=== PATIENT | male | born 1940 | race Caucasian/White ===

== ENCOUNTER 2018-09-04 10:29 | Day surgery (SDC) | payer MEDICARE, SELFPAY ==
[2018-09-04 10:47] VITALS: BP 148/86; PULSE 78; RESP 18; TEMP 36.8; O2SAT 98; BMI 25.3
[2018-09-04] MEDS: Tetracaine 0.5% Ophthalmic Bottle 1 DRP (12:20)
[2018-09-04] MEDS: Neomycin/Polymyxin/Dexameth OINT 3.5GM OPTH.TUBE 3.5 APPLIC OPHTHALMIC (13:38)
--- NOTE | 2018-09-04 13:39 | DCINST_ITS ---
[facility] Eyelid Surgery Discharge Instructions: CARE: 1. Apply Ice or Bag of Frozen Veggies to the surgery location 30 minutes of every hour for the first 48 hours while awake. 2. When you are sleeping, please apply the shield with paper tape for the first 3 nights. 3. It is best to attempt to sleep on your side that is opposite the side of surgery. 4. Do not RUB your eyelid. 5. Do not shower for 24 hours after surgery. It is OK to sponge bath but avoid water in or around the face. 6. Clean the incision daily with warm water and clean cloth. Do NOT RUB aggressively. 7. Do not lift anything heavier than 25 pounds for the first 2 weeks after surgery. 8. Resume regular diet and medications MEDICATIONS: 1. Apply prescribed eye ointment to the incision site and eye four times daily for the first two days. 2. If your eye is comfortable after 2 days, you may apply the ointment only to the incision site until your appointment with Dr. Frausto in 1 week. Please CALL IF YOU DEVELOP ANY OF THE FOLLOWING PROBLEMS: 1. Extreme pain that is not relieved with Tylenol or Ibuprofen 2. Vision loss 3. Nausea and vomiting During regular office hours, please call the office at After hours, please call the office which will route to an answering service OR call Dr. Frausto directly at If you have not heard from Dr. Frausto in 30 minutes, please call . You will reach Dr. Michele Frausto. Please notify him you are an EYE patient and need to speak with Dr. Sylvia Frausto.
[2018-09-04 13:40] VITALS: BP 126/85; BP 148/86; PULSE 63; RESP 18; TEMP 36.6; O2SAT 93
[2018-09-04 13:45] VITALS: BP 122/69; BP 148/86; PULSE 58; RESP 16; O2SAT 95
--- NOTE | 2018-09-04 13:46 | OP.PCM_ITS ---
Report of Operation Date of Procedure: 09/04/18 Pre-Operative Diagnosis: Dermatochalasis Bilateral Post-Operative Diagnosis: same Surgery/Procedure Performed:: Bilateral Upper Eyelid Blepharoplasty Description of Surgical Findings:: dermatochalasis upper eyelids OU Type of Anesthesia:: Local MAC Specimen's removed: Bilateral upper eyelid skin Estimated Blood Loss (mL): <5 cc Description of Procedure: The patient was seen in the preoperative bay where bilateral upper eyelid creases and skin to be excised were marked with the patient in the upright position. The patient was then brought to the operating room where a time out was performed prior to the start of the procedure. Anesthesia team induced sedation. Lidocaine with epinephrine was infiltrated into the upper eyelid skin. The upper face was prepped and draped in sterile fashion for surgery. Corneal protectors were placed in the right and left eye after application of tetracaine drops. Attention was paid to the right upper eyelid. A 15 degree blade was used to make the incision along the premarked areas of the upper eyelid. Kevin scissors and forceps were used to remove the upper eyelid skin and orbicularis. Hemostasis was achieved with bipolar cautery. A wet gauze pad was applied to the right upper eyelid and the exact same procedure took place for the left upper ey elid. Subsequently returning to the right upper eyelid, it was ensured adequate hemostasis was achieved. A central interrupted suture was placed to reapproximate the upper eyelid skin with 6-0 nylon. The same suture was then used to close the temporal aspect of the incision in a running fashion. Nasally, a small triangle of tissue was excised medially . The triangle was closed with a single interrupted suture. The remaining nasal aspect of the incision was closed in a running fashion. The exact same procedure was completed on the left upper eyelid. The corneal protectors were removed. Maxitrol ointment was applied to both eyelids and eyes. Patient was taken to the recovery room in a stable condition with instructions to follow up in the clinic in 5-7 days. - Complications none
[2018-09-04 13:50] VITALS: BP 128/79; BP 148/86; PULSE 61; RESP 16; O2SAT 94
[2018-09-04 13:55] VITALS: BP 128/90; BP 148/86; PULSE 83; RESP 18; TEMP 36.2; O2SAT 100
[2018-09-04 14:19] VITALS: BP 148/86
== END 2018-09-04 14:27 | disposition home or self-care (01) ==
LOC: SDC 10:30 → AC 10:32
PROVIDERS: Family Provider Internal Medicine; PCP Internal Medicine; Referring Provider Ophthalmology; Visit Provider Ophthalmology
DX: H02.831 Dermatochalasis of right upper eyelid (principal); H02.834 Dermatochalasis of left upper eyelid; I12.9 Hypertensive chronic kidney disease with stage 1 through stage 4 chronic kidney disease, or unspecified chronic kidney disease; N18.9 Chronic kidney disease, unspecified; E55.9 Vitamin D deficiency, unspecified; E78.00 Pure hypercholesterolemia, unspecified; M19.90 Unspecified osteoarthritis, unspecified site; Z79.899 Other long term (current) drug therapy; Z87.891 Personal history of nicotine dependence; Z86.718 Personal history of other venous thrombosis and embolism
CPT/HCPCS: 15822

== ENCOUNTER → 2023-05-03 | Outpatient (CLI) | payer MEDICARE, SELFPAY | END | disposition home or self-care (01) | PROVIDERS: PCP Internal Medicine; Referring Provider Nurse Practitioner Family; Visit Provider Nurse Practitioner Family | DX: I45.5 Other specified heart block (principal) | CPT/HCPCS: 93225; 93226 ==

== ENCOUNTER 2023-06-14 11:20 | Day surgery (SDC) | payer MEDICARE, SELFPAY ==
[2023-06-02 07:41] LABS: Hematocrit 48.8 % (40-54); Mean Corp Hgb Conc 32.8 g/dL (32-36); Mean Corpuscular Hgb 30.8 pg (27.0-32.0); Mean Platelet Vol. 9.5 fl (6.2-12.0); Platelet Count 248 K/mm3 (150-450); RBC Distribution Width CV 13.9 % (11.6-14.6); RBC Distribution Width SD 47.8 fl (35.1-43.9); Red Blood Count 5.19 M/mm3 (4.6-6.2); White Blood Count 5.3 K/mm3 (4.4-11.0)
[2023-06-02 07:46] LABS: Anion Gap 4 (5-15); BUN 25 mg/dL (7-18); BUN/Creat Ratio 20.5 RATIO (10-20); Calcium,Total 9.5 mg/dL (8.5-10.1); Chloride 108 mmol/L (98-107); Creatinine, Serum 1.22 mg/dL (0.70-1.30); EST Glomerular Filtration Rate 61 mL/min (>60); Est Glom Filt Rate - Afr Amer 73 mL/min (>60); Glucose 123 mg/dL (74-106); Potassium 4.3 mmol/L (3.5-5.1); Sodium Level 142 mmol/L (136-145)
[2023-06-14] VITALS (9 sets, daily range): BP systolic 120–156; BP diastolic 72–99; PULSE 77–98; RESP 14–16; TEMP 36.8–37.2; O2SAT 88–99; BMI 23.9
[2023-06-14] MEDS: Lactated Ringers 1,000 ML 15 ML IV (12:01)
--- NOTE | 2023-06-14 13:13 | HP.PCM_ITS ---
History and Physical Date of Admission: 06/14/23 Visit Reasons: HEMORRHOIDS Chief Complaint: hemorrhiods Is patient in pain?: No Allergies No Known Allergies Allergy (Verified 06/01/23 10:32) Medications lisinopril 5 mg tablet 10 mg PO DAILY 05/22/13 [History Confirmed 06/01/23] Vitamin D3 5,000 mg PO QODAY 09/16/15 [History Confirmed 06/01/23] multivitamin (Multiple Vitamins tablet) 1 ea PO DAILY 04/29/16 [History Confirmed 06/01/23] atorvastatin 20 mg tablet (Lipitor) 20 mg PO DAILY 06/01/23 [History Confirmed 06/01/23] dapagliflozin propanediol 5 mg tablet (Farxiga) 5 mg PO DAILY 06/01/23 [History Confirmed 06/01/23] PFS Surgical History H/O brain surgery History of hernia repair History of left knee replacement History of right hip replacement History of total right knee replacement Social History (Updated 06/01/23 @ 10:31 by Velia Garcia) Smoking Status: Never smoker alcohol intake: current alcohol intake frequency: holidays/special occasions only substance use type: does not use HPI HPI HPI: 82-year-old gentleman is being referred by Dr. Tatiana Ott for surgical consultation regarding bleeding hemorrhoids and a written copy my surgical consult and recommendations will return to her. She is provided information of a colonoscopy performed by Dr. Curly Albright back on May 30, 2022. Internal hemorrhoids were noted. Sessile polyp in hepatic flexure was removed with a cold snare. It was felt by Dr. Curly Albright that the patient's episodic rectal bleeding was secondary to hemorrhoids and/or diverticulosis. He recommended hydrocortisone cream twice a day for 10 days and a high-fiber diet. There was no further GI follow-up offered. No additional colonoscopies were recommended because of the patient's age. The patient states over the past year he has had increased greasy type of disch arge as well as rectal bleeding. He has had to increase leg and wear a pad for absorption. ROS General General: No weight change, appetite, fatigue, colon cancer, breast cancer or weakness HEENT HEENT: No difficulty swallowing, eye injury, eye surgery, swollen glands or hoarseness Endo Endocrine: No thyroid disease, diabetes mellitus, thyroid cancer, Hair loss, heat intolerance or cold intolerance Skin Skin: No rash or changing moles Musc Musculoskeletal: Yes arthritis; No back problems, rheumatoid arthritis, gout or joint pain Cardio Cardiovascular: Yes high blood pressure; No murmur, pacemaker, heart disease, atrial fibrillation, heart attack, heart stent, palpitations, shortness of breat with exertion or chest pain Psych Psychiatric: No depression, anxiety or hearing voices Resp Respiratory: No shortness of breath, No sleep apnea, No cough, No COPD, No asthma, No emphysema and No wheezing Gastro Gastrointestinal: No abdominal pain, No nausea or vomiting, No diarrhea, No constipation, No blood in stool, No acid reflux, Yes hemorrhoids, No ulcers, No gallbladder problem and No black,tarry stools Thierno Hematologic: No blood thinners, No blood disorders, No bleeding, No anemia and Yes blood clots Neuro Neurologic: No system reviewed and no additional complaints, except as documented, No as per HPI, No abnormal gait, No abnormal hearing, No abnormal movements, No abnormal speech, No behavioral changes, No burning sensations, No confusion, No convulsions, No disequilibrium, No dizziness, No localized weakness, No frequent falls, No headache(s), No lack of coordination, No loss of vision, No memory loss, No numbness, No other visual disturbances, No radicular pain, No restless legs, No sensory deficit, No syncope, No tingling, No tremor(s), No weakness and No other Exam Const General: cooperative, healthy appearing, comfortable and no acute distress [facility] Head: normal to inspection Eyes General: appearance normal, both eyes and all related structures Neck Neck: normal visual inspection Chest Chest palpation & inspection: normal inspection of the chest Resp Effort & Inspection: normal respiratory effort Auscultation: clear to auscultation bilaterally Cardio Other: Irregular heart rate GI Palpation: soft and no hepatosplenomegaly Other: Rectal exam demonstrates prolapsing tissue particularly right lateral with superficial ulceration of the mucosa. Internal and external hemorrhoids noted. Significant 3+ prostatic enlargement [facility] [place] [facility] [place] Cervical Spine: normal cervical lordosis Skin General: no rashes or lesions noted Neuro General: patient alert and patient awake Extrem General: no calf tenderness Psych Appearance: grossly normal Assessment and Plan Assessment and Plan (1) Bleeding hemorrhoids: Status: Acute Plan: Patient appears to have prolapsing ulcerated mucosa internal hemorrhoids particularly right lateral. I think this correlates with his rectal bleeding and jellylike discharge. The tissue does appear to be abnormal. It is soft. I definitively recommend an excisional hemorrhoidectomy of this tissue with careful inspection by pathology to exclude potential for malignancy. I have discussed with him the technique benefit risk complication alternatives of the surgical hemorrhoidectomy. They do have a trip planned in late August but I believe that he he will be improved by this procedure. He is aware of potential risk for sphincter injury and incontinence. He has had an opportunity ask questions answered. I believe that his hygiene and daily activity will be improved with the surgical treatment over what he is having to do now. We will notify Dr. Tatiana Ott's office as by report she recently had cardiac monitoring done for the patient because of irregular heart rate. Copy: Dr. Tatiana Ennis M.D., F.A.C.S. The patient's original surgery date had to be delayed. He had had a cardiac monitoring device with some ectopy. Primary care reviewed that it is provided him clearance to proceed. We have reviewed his history and physical remains stable. We will proceed with the planned surgical hemorrhoidectomy to alleviate prolapsing of anorectal tissue and bleeding. Jordy Ennis M.D., F.A.C.S.
[2023-06-14] MEDS: Cefotetan 2 GM in 0.9% NS 100 ML IV (13:15)
--- NOTE | 2023-06-14 13:15 | DCINST_ITS ---
Discharge Instructions Procedure Rectal Surgery Diet Discharge Diet: No restrictions Activity Discharge Activity: Return to Normal Activity and May Not Drive (while you are taking narcotic pain medications. Do not drive, work with heavy equipment or s ign legal documents for 24 hours after your surgery.) Additional Activity Instructions:: Do not drive or work with heavy equipment or sign legal documents for 24 hours. Be aware that pain medications may cause nausea. You should typically eat light foods as you take your pain medications. Pain medications may also cause constipation, if you have difficulty with this please discuss with your doctor. Metamucil heaping tablespoon fluid daily Mineral oil 30 cc or 1 ounce in food or fluid daily for 1 week You may use the provided bupivacaine cream every 2-4 hours as needed topically for comfort Use a sitz bath's and warm soapy water to cleanse and soothe the area particularly after any bowel movement Metronidazole 250 mg orally 3 times a day for 5 days Pain medicine as needed. Follow Up Care Please Follow Up With: Jordy Ennis MD When: Please call [phone] to schedule appointment for surgical follow-up in 3 weeks. Test Results: Test results from this visit will be discussed in further detail at your follow- up appointment, if applicable. Discharge Plan Admission Attending Provider: Jordy Ennis Primary Care Provider: Tatiana Ott Discharge Orders/Prescriptions Prescriptions: No Action atorvastatin [Lipitor] 20 mg tablet 20 mg PO QHS dapagliflozin propanediol [Farxiga] 5 mg tablet 5 mg PO DAILY lisinopril 5 MG tablet 10 mg PO DAILY Vitamin D3 2,000 MG tablet 4,000 mg PO QODAY multivitamin [Multiple Vitamins] 1 EACH tablet 1 ea PO DAILY Referrals / Follow Up: Tatiana Ott DO [Primary Care Provider] - Disposition Disposition (needs filled in before D/C Order can be placed): Home, Self Care
--- NOTE | 2023-06-14 13:30 | HEM_PTH ---
PATHOLOGY RESULTS PATIENT: IRON GILLESPIE LOC: [facility] – [place] U#:[id number] AGE/SX: 82/M ROOM: RE06/14/[address]: Dr. Iron Ennis MD : [id number] BED: DIS: 06/14/2023 SPEC #: [id number] RECD: 06/15/23 08:59 STATUS: OSITO REKana #: [id number] TAMMIE: 06/14/23 13:[address]: Iron Ennis DEPT: SURGICAL PATHOLOGY RECD BY: April Rowe ENTERED: 06/15/23 09:00 SP TYPE: HEMORRHOID OTHR DR: Dr. Tatiana Ott DO Tissues: HEMORRHOIDS HEMORRHOIDS HEMORRHOIDS Procedures: Surgery Specimen Level III HEADER OPERATION: Hemorrhoidectomy PRE-OP DIAGNOSIS: Hemorrhoids TISSUE SUBMITTED: A - Right lateral hemorrhoid, B - Anterior hemorrhoid, C - Left lateral hemorrhoid MICROSCOPIC DIAGNOSIS A. Right lateral hemorrhoid, hemorrhoidectomy: Submucosal vascular ectasia and thrombosis. Focal mucosal ulceration. B. Right anterior hemorrhoid, hemorrhoidectomy: Submucosal vascular ectasia and thrombosis. Focal mucosal ulceration. C. Left lateral hemorrhoid, hemorrhoidectomy: Submucosal vascular ectasia and thrombosis consistent with hemorrhoid. AM:branden 06/16/2023 MICROSCOPIC DESCRIPTION Slides are reviewed. GROSS DESCRIPTION A - Received in fixative is one container labeled with the patient's name and designated right lateral hemorrhoid. The specimen consists of a piece of waller-pink mucosal tissue measuring 3.0 x 2.0 x 1.5 cm. The serosal surface shows focal area of ulceration. The specimen is inked, serially sectioned and reveal focally congested cut surfaces. Contract Assistant sections are submitted in two cassettes. B - Received in fixative is one container labeled with the patient's name and designated anterior hemorrhoid. The specimen consists of a piece of waller mucosal tissue measuring 2.0 x 1.0 x 1.0 cm. The specimen is serially sectioned and reveals focally congested cut surfaces. The entire specimen is submitted in two cassettes. C - Received in fixative is one container labeled with the patient's name and designated left lateral hemorrhoid. The specimen consists of a piece of waller-brown mucosal tissue measuring 2.3 x 0.8 x 0.5 cm. The specimen is inked, bisected and reveals congested and hemorrhagic cut surfaces. The entire specimen is submitted in one cassette. / SJ:branden 06/15/2023 TC:5 CPT: 74361 x3
[2023-06-14] MEDS: Lubricating Jelly 60 GM Tube 30 GM (13:36)
[2023-06-14] MEDS: BUPIVACAINE LIPOSOME/PF 20 ML VIAL OPERA.SITE (13:36)
[2023-06-14] MEDS: Bupivacaine 0.5% PF 10 ML VIAL (13:36)
[2023-06-14] MEDS: Dibucaine 30 GM Tube 1 APPLIC (13:48)
--- NOTE | 2023-06-14 14:11 | PCM.OPRPT ---
Report of Operation Date of Procedure: 06/14/23 Pre-Operative Diagnosis: Prolapsing bleeding internal hemorrhoids with abnormal mucosa Post-Operative Diagnosis: Same Surgery/Procedure Performed:: 3 column internal and external surgical hemorrhoidectomy Description of Surgical Findings:: Timeout informed consent was obtained. 82-year-old gentleman was taken to the op room underwent general endotracheal ovation esthesia was placed prone on the table careful shoulder and facial padding was performed as well as pelvic padding. He was placed in a jackknife position. Cefotetan 2 g were given intravenously. The perianal area was clipper and Betadine prepped. Inspection revealed the bulk of the disease of right lateral. An apical suture was placed of 2-0 Vicryl and ligated. Then a 2-0 chromic was inserted. A excision of the external/internal disease was performed using harmonic scalpel. Great care was taken to identify the sphincter mechanisms which was preserved. The mucosa then was approximated with a running locking 2-0 chromic. There was additional abnormal mucosa with a frond-like appearance as had been found right laterally there was additional portion found anteriorly. A similar surgical hemorrhoidectomy procedure was formed to the anterior tissue and then left laterally that was not the frond-like abnormal prolapsing internal hemorrhoidal tissue but a third 2-0 Vicryl suture was placed followed by the 2-0 chromic and then internal and external more routine hemorrhoidal disease was excised with the harmonic scalpel. Again the most close approximated with a running 2-0 chromic. At the completion all of the bulky disease had been resected. The anus was nicely patent. The perianal tissue was anesthetized with 20 cc of Exparel mixed with 20 cc of 0.5% Marcaine. Dibucaine ointment on Vaseline gauze was inserted followed by dry cover dressings. Sponge and instrument and needle counts were reported to the surgeon to be correct. Specimens each of the right lateral anterior and left lateral hemorrhoidal tissues were submitted separately in specimen containers. Blood loss minimal. Drains none. The patient was taken to the recovery area in satisfied condition without apparent complication. Jordy Ennis M.D., F.A.C.S. Surgeon: Jordy Ennis Type of Anesthesia: General and Local Anesthesiologist: Casper Rush
[2023-06-14] MEDS: Acetaminophen 325 MG Tablet 650 MG PO (15:59)
[2023-06-14] MEDS: Tamsulosin HCl 0.4 MG Capsule 0.400000000000000022 MG PO (17:00)
--- NOTE | 2023-06-14 17:43 | SUR.PHASEII ---
childs catheter inserted, patient tolerated well. drained about 400cc clear yellow urine. instructed patient and family on emptying catheter, caring for catheter and removing catheter by cutting pigtail. demonstrated how to empty catheter, patient and family voiced understanding and was able to return explanation of how to care for catheter and remove catheter. They are aware to remove catheter early fri morning and to telephone dr Sinha office if unable to void by noon.
== END 2023-06-14 17:48 | disposition home or self-care (01) ==
LOC: SDC 11:22 → AC 11:25
PROVIDERS: PCP Internal Medicine; Referring Provider Surgery; Visit Provider Surgery
PROC: (CPT 46260; principal; 2023-06-14 13:15)
DX: K64.8 Other hemorrhoids (principal); K64.5 Perianal venous thrombosis; I10 Essential (primary) hypertension; E78.00 Pure hypercholesterolemia, unspecified; Z79.899 Other long term (current) drug therapy; Z87.891 Personal history of nicotine dependence
CPT/HCPCS: 46260; 00902; 36415; 80048; 85027; 88304; J7120; J2405

== ENCOUNTER → 2024-08-13 | Outpatient (CLI) | payer MEDICARE, SELFPAY ==
[2024-08-18 09:08] LABS: PSA, Free 1.08 ng/mL
== END | disposition home or self-care (01) ==
LOC: LAB 11:30
PROVIDERS: PCP Internal Medicine; Referring Provider Nurse Practitioner; Visit Provider Nurse Practitioner
DX: Z12.5 Encounter for screening for malignant neoplasm of prostate (principal)
CPT/HCPCS: 36415; 84153; 84154